=== PATIENT | female | born 1960 | race Caucasian/White ===

== ENCOUNTER 2016-09-22 14:27 | Emergency (ER) | payer MEDICAID ==
[~2016-09-22 14:27] MED LIST: ALBUTEROL17 GM INH; BACTRIM DS TAB1 EACH PO; CIPRO500 MG PO; COMPAZINE10 M PO; CYCLOBENZAPRINE10 M1 PO; CYCLOBENZAPRINE5 M1 PO; ELIDEL100 GM TP; FLAGYL500 MG PO; FLOMAX0.4 MG PO; GLUCAGON IN1 MG/1 ML IM; GLUCOPHAGE XR500 MG PO; GLUCOPHAGE500 MG PO; GLUCOTROL10 MG PO; IBUPROFEN600 MG PO; KEFLEX250 MG PO; LANTUS100 U/ML SC; MECLIZINE HCL25 MG PO; METFORMIN HCL500 PO; MONISTAT 3200 MG/SUP VG; MOTRIN600 MG PO; NAPROSYN500 M1 PO; NO MEDICATIONS; NORCO 5/325 TAB1 TAB PO; NORCO 5/3251 TA2 PO; PEN-VEE K500 MG PO; PERCOCET 5/3251 TAB PO; PHENERGAN W/CO120 ML PO; TYLENOL325 MG PO; WELLBUTRIN SR150 MG PO; ZESTRIL5 MG PO; ZITHROMAX250MG Z-PAK PO; ZOCOR20 MG PO; ZOFRAN4 MG PO; [UNRECOGNIZED DRUG - OTHER] PO
[2016-09-22] MEDS ORDERED: GLIPIZIDE (14:45)
[2016-09-22] MEDS ORDERED: NORCO 5-325 TA1 EACH PO (16:01)
[2016-09-22] MEDS ORDERED: AUGMENTIN 875-1 EAC2 PO (16:01)
== END 2016-09-22 16:10 ==
LOC: EDMED 14:27
PROC: 0H9GXZZ Drainage of Left Hand Skin, External Approach (ICD-10-PCS; principal; 2016-09-22)
DX: S61.051A Open bite of right thumb without damage to nail, initial encounter (principal); L08.9 Local infection of the skin and subcutaneous tissue, unspecified; Z23 Encounter for immunization; W54.0XXA Bitten by dog, initial encounter